=== PATIENT | female | born 1970 | race Caucasian/White ===

== ENCOUNTER 2020-08-02 19:55 | Emergency (ER) | payer BC ==
[~2020-08-02 19:55] MED LIST: Amoxicillin/Clavulanate K 500-125 MG Tab PO ONE
--- NOTE | 2020-08-02 21:01 | CR ---
PROCEDURE INFORMATION: Exam: XR Right Finger(s) Exam date and time: 08/02/2020 8:22 PM Age: 50 years old Clinical indication: Injury or trauma; Injury history: Dog bite; Initial encounter; Abrasion; Right index finger TECHNIQUE: Imaging protocol: XR Right fingers. Views: Minimum 2 views. COMPARISON: No relevant prior studies available. FINDINGS: Bones/joints: Normal. Soft tissues: Normal. IMPRESSION: No acute findings.
--- NOTE | 2020-08-02 21:11 | EDM.PDOC ---
ED HPI GENERAL MEDICAL PROBLEM - General Chief Complaint: Bite:Animal, Insect Stated Complaint: DOG BITE Time Seen by Provider: 08/02/20 19:55 Source of Information: Reports: Patient History Limitations: Reports: No Limitations - History of Present Illness INITIAL COMMENTS - FREE TEXT/NARRATIVE: ED with report of being bitten by neighbors yessica Casey was over visiting with her small dog and other dog agressive toward her smaller dog and reached in to parts picker her dog and was bitten. Coremaker Pipe reported shots up to date but could not document proof. Yessica is currently in quarantine at [facility]. Right Finger-Index Pain Score (Numeric/FACES): 4 - Related Data Allergies Allergy/AdvReac Type Severity Reaction Status Date / Time bee venom protein (honey bee) Allergy Cannot Verified 08/02/20 19:41 Remember Home Meds: Home Meds . [No Known Home Meds] 08/02/20 [History] Past Medical History HEENT History: Reports: None Cardiovascular History: Reports: None Respiratory History: Reports: None Gastrointestinal History: Reports: None Genitourinary History: Reports: None ATTENDING PATHOLOGIST History: Reports: None Musculoskeletal History: Reports: None Neurological History: Reports: None Psychiatric History: Reports: None Endocrine/Metabolic History: Reports: None Hematologic History: Reports: None Immunologic History: Reports: None Oncologic (Cancer) History: Reports: None Dermatologic History: Reports: None - Infectious Disease History Infectious Disease History: Reports: None Social & Family History - Tobacco Use Smoking Status *Q: Never Smoker - Recreational Drug Use Recreational Drug Use: No ED ROS GENERAL - Review of Systems Review Of Systems: Comprehensive ROS is negative, except as noted in HPI. ED EXAM, ANIMAL BITE - Physical Exam Exam: See Below Exam Limited By: No Limitations General Appearance: Alert, Mild Distress Eye Exam: Bilateral Eye: EOMI Ears: Normal External Exam Nose: Normal Inspection Throat/Mouth: Normal Inspection Head: Atraumatic, Normocephalic Neck: Full Range of Motion Respiratory/Chest: No Respiratory Distress, Normal Breath Sounds Cardiovascular: Normal Peripheral Pulses, Regular Rate, Rhythm Extremities: Joint Swelling (right index mild swelling discomfort with ROM) Neurological: Alert, Oriented, Normal Cognition Psychiatric: Normal Affect Skin Exam: Other (superficial abrasion back of right hand puncture wound right index finger) Course - Vital Signs Last Recorded V/S: Last Vital Signs Temp 98.8 F 08/02/20 19:41 Pulse 71 08/02/20 19:41 Resp 16 08/02/20 19:41 BP 136/71 08/02/20 19:41 Pulse Ox 100 08/02/20 19:41 - Orders/Labs/Meds Meds: Medications Discontinued Medications Generic Name Dose Route Start Last Admin Trade Name Blanche PRN Reason Stop Dose Admin Amoxicillin/Clavulanate Potassium 1 tab 08/02/20 19:50 08/02/20 21:21 Augmentin 500 Mg\125 Mg PO 08/02/20 19:51 1 tab ONETIME ONE Administration Departure - Departure Time of Disposition: 21:08 Disposition: Home, Self-Care 01 Condition: Good Clinical Impression: Dog bite Qualifiers: Encounter type: initial encounter Qualified Code(s): W54.0XXA - Bitten by dog, initial encounter - Discharge Information *PRESCRIPTION DRUG MONITORING PROGRAM REVIEWED*: No *COPY OF PRESCRIPTION DRUG MONITORING REPORT IN PATIENT OLVIN: No Instructions: Animal Bite, Adult, [id number] Forms: ED Department Discharge Additional Instructions: wash wounds twice daily augmentin 500/125 one twice daily for one week follow up if increased redness swelling or drainage alternate tylenol and ibuprofen every 4 hours as needed for discomfort bandaide dressing until wounds healed Sepsis Event Note (ED) - Evaluation Sepsis Screening Result: No Definite Risk - Focused Exam Vital Signs: Vital Signs Temp Pulse Resp BP Pulse Ox 08/02/20 19:41 98.8 F 71 16 136/71 100
== END 2020-08-02 21:21 | disposition home or self-care (01) ==
LOC: DL.ED 19:55
DX: S61.250A Open bite of right index finger without damage to nail, initial encounter (principal); S60.511A Abrasion of right hand, initial encounter; Z91.030 Bee allergy status; W54.0XXA Bitten by dog, initial encounter
CPT/HCPCS: 73140-F6; 99283; A9270-GY

== ENCOUNTER 2024-08-07 16:29 | Emergency (ER) | payer OTHER, BC | END 2024-08-07 17:44 | disposition home or self-care (01) | LOC: DL.ED 16:29 | DX: M79.641 Pain in right hand (principal); Z91.030 Bee allergy status; Z86.16 Personal history of COVID-19 | CPT/HCPCS: 73120-RT; 99282; 99284 ==